=== PATIENT | male | born 1995 | race Caucasian/White ===

== ENCOUNTER 2018-07-20 17:05 | Emergency (ER) | payer SELFPAY ==
--- NOTE | 2018-07-20 18:46 | RADIOLOGY REPORT (SQ) ---
EXAM DESCRIPTION: ELBOW RIGHT OVER 2 VIEWS COMPLETED DATE/TIME: 07/20/2018 6:35 pm REASON FOR STUDY: severe pain with extension no injury COMPARISON: None. NUMBER OF VIEWS: Four views. TECHNIQUE: AP, lateral, and both oblique radiographic images acquired of the right elbow. LIMITATIONS: None. FINDINGS: MINERALIZATION: Normal. BONES: No acute fracture or dislocation. No worrisome bone lesions. JOINT: No effusion. SOFT TISSUES: No soft tissue swelling. No foreign body. OTHER: No other significant finding. IMPRESSION: NEGATIVE STUDY OF THE RIGHT ELBOW. NO RADIOGRAPHIC EVIDENCE OF ACUTE INJURY. TECHNICAL DOCUMENTATION: JOB ID: [id number] [employer]- All Rights Reserved Reading location - IP/workstation name: [email or web address] [email or web address]
--- NOTE | 2018-07-20 19:05 | ER Document Report ---
HPI - HPI Time Seen by Provider: 07/20/18 18:01 Pain Level: 3 Notes: Patient is a 23-year-old male presenting to the emergency department with chief complaint of right arm pain near the elbow that started yesterday. Patient states he has normal range of motion with his elbow however with full extension he gets a sharp pain near the antecubital space that goes up towards his bicep. He denies any direct trauma to the area. - CONSTITUTIONAL Constitutional: DENIES: Fever, Chills - MUSCULOSKELETAL Musculoskeletal: REPORTS: Extremity pain - right arm Past Medical History - General Information source: Patient - Social History Smoking Status: Never Smoker Frequency of alcohol use: None Drug Abuse: None Family History: Reviewed & Not Pertinent Patient has suicidal ideation: No Patient has homicidal ideation: No Pulmonary Medical History: Reports: Hx Asthma Renal/ Medical History: Denies: Hx Peritoneal Dialysis Surgical Hx: Negative - Immunizations Immunizations up to date: Yes Hx Diphtheria, Pertussis, Tetanus Vaccination: Yes Vertical Provider Document - CONSTITUTIONAL Notes: PHYSICAL EXAMINATION: GENERAL: Well-appearing, well-nourished and in no acute distress. HEAD: Atraumatic, normocephalic. EYES: Pupils equal round extraocular movements intact, conjunctiva are normal. ENT: Nares patent NECK: Normal range of motion LUNGS: No respiratory distress Musculoskeletal: Normal range of motion at wrist, elbow and shoulder of right upper extremity. Normal cap refill, strong radial pulse, normal motor and sensation throughout upper extremity. Normal strength. NEUROLOGICAL: Normal speech, normal gait. PSYCH: Normal mood, normal affect. SKIN: Warm, Dry, normal turgor, no rashes or lesions noted. - INFECTION CONTROL TRAVEL OUTSIDE OF THE [place] IN LAST 30 DAYS: No Course - Re-evaluation Re-evalutation: Elbow x-ray is negative for any acute fracture dislocation. There is no abnormality noted on my physical examination. No swelling, erythema or ecchymosis noted. Normal pulses distal to injury, normal range of motion to entire upper extremity. - Vital Signs Vital signs: Temp Pulse Resp BP Pulse Ox 98.1 F 76 18 119/78 98 07/20/18 17:27 07/20/18 17:27 07/20/18 17:27 07/20/18 17:27 07/20/18 17:27 Discharge - Discharge Clinical Impression: Right elbow pain Condition: Stable Disposition: HOME, SELF-CARE Additional Instructions: The x-ray of your elbow today was negative. You can use the sling as needed for comfort. I would like you to take 800 ibuprofen 600 mg every 6 hours for the next 2 to 3 days. This will help reduce pain and inflammation. You may also try applying ice to the area 20 minutes on every 2-3 hours. If your pain does not ease up over the next couple of days you may want to follow-up with either orthopedics or primary care. Since you do not have a primary care provider I have enclosed the contact information for [facility]. I also includes the information for an orthopedic. Forms: Return to Work Referrals: HARI MALLORY, DO [ACTIVE STAFF] - Follow up as needed
[2018-07-20 19:16] VITALS: BP 119/72
== END 2018-07-20 19:13 | disposition home or self-care (01) ==
LOC: ER 17:05
DX: M25.521 Pain in right elbow (principal); M79.601 Pain in right arm; J45.909 Unspecified asthma, uncomplicated
CPT/HCPCS: 99283